=== PATIENT | male | born 1970 | race Caucasian/White ===

== ENCOUNTER 2017-11-22 14:44 | Inpatient (IN) | payer OTHER ==
[2017-11-22] MEDS ORDERED: SODIUM CHLORIDE 1,000 ML IV STA ×2 (15:04→21:32)
[2017-11-22] MEDS ORDERED: ACETAMINOPHEN 500 MG TABLET (FP) PO ONE (15:08)
--- NOTE | 2017-11-22 15:08 | PDOC ---
History of Present Illness <Sree Murillo - Last Filed: 11/22/17 16:56> - History of Present Illness Initial Comments: 47 year old male with history of HTN presenting with left lower extremity pain , swelling, erythema and fevers for the past three days. Stated he had whole body fevers on Monday then began to feel some swelling and tenderness which became a non-pruritic erythamatous lesion that slowly spread up his leg over the next few days. He also feels some slight pain and swelling in his left groin. Hasn't taken any medication for the leg pain this year. Denies any trauma to the area, weeping/drainage from the wound, recent insect bites there, or any episode of this in the past. Denies nausea, vomiting, diarrhea, constipation, chest pain, or other symptoms. 11/22/17 15:07 <Jose José - Last Filed: 11/22/17 19:03> - General Chief Complaint: Wound Stated Complaint: REDNESS TO LEFT LOWER LEG Time Seen by Provider: 11/22/17 15:01 Past History <Sree Murillo - Last Filed: 11/22/17 16:56> - Past Medical History COPD: No HTN: Yes Hypercholesterolemia: Yes - Suicide/Smoking/Psychosocial Hx Smoking History: Never smoked Have you smoked in the past 12 months: No Information on smoking cessation initiated: No Hx Alcohol Use: Yes (SOCIAL) Drug/Substance Use Hx: No Substance Use Type: Alcohol <Jose José - Last Filed: 11/22/17 19:03> - Past Medical History Allergies/Adverse Reactions: Allergies Allergy/AdvReac Type Severity Reaction Status Date / Time No Known Allergies Allergy Unverified 11/22/17 14:46 Home Medications: Ambulatory Orders NK [No Known Home Medication] 11/22/17 Review of Systems - Review of Systems Constitutional: Yes: Chills, Fever. No: Diaphoresis, Night Sweats HEENTM: No: Blurred Vision Respiratory: No: Cough, Shortness of Breath, Stridor, Wheezing, Productive cough Cardiac (ROS): No: Chest Pain, Edema, Irregular Heart Rate ABD/GI: No: Diarrhea, Nausea, Vomiting : No: Burning, Dysuria, Discharge, Frequency, Hematuria Musculoskeletal: No: Joint Pain, Joint Swelling Integumentary: Yes: Change in Color, Erythema, Lesions, Rash. No: Bruising Neurological: No: Headache, Numbness, Tremors Psychiatric: No: Anxiety, Depression <Jose José - Last Filed: 11/22/17 19:03> *Physical Exam - Vital Signs Last Vital Signs Temp Pulse Resp BP Pulse Ox 98.7 F 97 H 16 152/108 96 11/22/17 14:46 11/22/17 14:46 11/22/17 14:46 11/22/17 14:46 11/22/17 14:46 <MoSree white S - Last Filed: 11/22/17 16:56> - Vital Signs Last Vital Signs Temp Pulse Resp BP Pulse Ox 98.7 F 97 H 16 152/108 96 11/22/17 14:46 11/22/17 14:46 11/22/17 14:46 11/22/17 14:46 11/22/17 14:46 - Physical Exam General Appearance: Yes: Nourished, Appropriately Dressed. No: Apparent Distress HEENT: positive: EOMI, TAM, Normal ENT Inspection, Normal Voice Neck: positive: Trachea midline, Normal Thyroid, Supple. negative: Tender, Rigid Respiratory/Chest: positive: Lungs Clear, Normal Breath Sounds. negative: Chest Tender, Respiratory Distress Cardiovascular: positive: Regular Rhythm, Regular Rate. negative: Murmur Gastrointestinal/Abdominal: positive: Normal Bowel Sounds, Flat, Soft. negative : Tender Musculoskeletal: negative: Normal Inspection (Per below), CVA Tenderness Extremity: positive: Normal Capillary Refill, Normal Range of Motion, Tender, Pedal Edema, Swelling, Calf Tenderness, Erythema, Inflammation, Other (Left lower extremtiy swelling, erythema, and fluctuance, without obvious wheezing. Are of erythema extending from left lower extremity sock line around ankle and anteriorly to tibial plateau with slight posterior le ertyehma and swelling. Entire area is tender to palpation as well. Some slight erythema in the left groin with TTP as well. ). negative: Normal Inspection Integumentary: positive: Dry, Warm, Erythema, Moist, Rash, Swelling. negative: Normal Color Neurologic: positive: Fully Oriented, Normal Response, Motor Strength 5/5 <Jose José - Last Filed: 11/22/17 19:03> ED Treatment Course - LABORATORY CBC & Chemistry Diagram: 11/22/17 15:40 11/22/17 15:40 - ADDITIONAL ORDERS Additional order review: Laboratory Results 11/22/17 11/22/17 11/22/17 15:40 15:40 15:40 PT with INR 12.4 INR 1.11 PTT (Actin FS) 21.7 L Sodium 133 L Potassium 3.2 L Chloride 97 L Carbon Dioxide 24 Anion Gap 12 BUN 12 Creatinine 1.3 Creat Clearance w eGFR 59.17 Random Glucose 95 Calcium 8.6 Total Bilirubin 0.7 AST 21 ALT 17 Alkaline Phosphatase 97 H Creatine Kinase 39 Troponin I 0.01 Total Protein 7.7 Albumin 3.7 Urine Color Yellow Urine Appearance Clear Urine pH 5.5 Ur Specific [place] 1.020 Urine Protein 2+ H Urine Glucose (UA) Negative Urine Ketones Negative Urine Blood 1+ H Urine Nitrite Negative Urine Bilirubin 1+ H Urine Urobilinogen 2.0 11/22/17 15:40 RBC 5.41 MCV 93.6 MCHC 33.7 RDW 13.6 MPV 9.5 Neutrophils % No Result Required. Lymphocytes % No Result Required. - Medications Given in the ED: ED Medications Discontinued Medications Generic Name Dose Route Start Last Admin Trade Name Freq PRN Reason Stop Dose Admin Acetaminophen 1,000 mg 11/22/17 15:08 11/22/17 16:05 Tylenol - PO 11/22/17 15:09 1,000 mg ONCE ONE Administration Sodium Chloride 1,000 mls @ 1,000 mls/hr 11/22/17 15:04 11/22/17 16:12 Normal Saline - IV 11/22/17 16:03 1,000 mls/hr ASDIR STA Administration <ChidiRem S - Last Filed: 11/22/17 16:56> - LABORATORY CBC & Chemistry Diagram: 11/22/17 15:40 11/22/17 15:40 - RADIOLOGY Radiology Studies Ordered: Category Date Time Status CHEST X-RAY PORTABLE* [RAD] Stat Radiology 11/22/17 15:03 Ordered DUPLEX VASCUL US-1 LEG [US] Stat Ultrasound 11/22/17 15:06 Ordered <Jose José - Last Filed: 11/22/17 19:03> Medical Decision Making - Medical Decision Making 47 year old male with PMH of HTN presenting with LLE erythema and swelling concerning for cellulitis + lymphangitis. Patient denies trauma, insect bite, or pruritus to that area. Patient is not a diabetic, smoker, or drinker. Sepsis labs sets demonstrated WBC at 17, and lactic acid of 2.4. Patient got Vancomycin 2 G, Tylenol 1G PO, 2 L NS, and LLE Doppler was negative for DVT or deeper infection. Patient was admitted for cellulitis/ lymphangitis treatment. Sighned out [employer] Luis by Dr. Murillo. 11/22/17 18:51 <Jose José - Last Filed: 11/22/17 19:03> *DC/Admit/Observation/Transfer - Discharge Dispostion Admit: Yes <Sree Murillo - Last Filed: 11/22/17 16:56> - Discharge Dispostion Admit: Yes <Jose José - Last Filed: 11/22/17 19:03> Diagnosis at time of Disposition: Cellulitis and abscess of left leg, Lymphangitis - Discharge Dispostion Condition at time of disposition: Stable
[2017-11-22 15:53] LABS: PH,URINE 5.5 (4.5-8); URINE APPEARANCE Clear; URINE BILIRUBIN 1+ (NEGATIVE); URINE GLUCOSE (UA) Negative (NEGATIVE); URINE KETONE Negative (NEGATIVE); URINE NITRITE Negative (NEGATIVE)
[2017-11-22 15:56] LABS: HEMATOCRIT 50.6 % (35.4-49); HEMOGLOBIN 17.1 GM/dl (11.7-16.9); MCH 31.6 pg (25.7-33.7); MCHC 33.7 g/dl (32.0-35.9); MEAN CELL VOLUME 93.6 fl (80-96); MEAN PLT VOLUME 9.5 fl (7.5-11.1); PLATELET COUNT 185 K/MM3 (134-434); RBC 5.41 M/mm3 (4.00-5.60); RDW 13.6 % (11.9-15.9); WHITE BLOOD COUNT 16.8 K/mm3 (4.0-10.8)
[2017-11-22] MEDS ORDERED: ACETAMINOPHEN 500 MG TABLET (FP) ONE (16:03)
[2017-11-22 16:11] LABS: URINE BLOOD 1+ (NEGATIVE); URINE COLOR YELLOW; URINE PROTEIN 2+ (NEGATIVE)
[2017-11-22 16:12] LABS: ALBUMIN 3.7 g/dl (3.5-5.0); ALK PHOS 97 U/L (32-92); ANION GAP 12 (8-16); BILIRUBIN,TOTAL 0.7 mg/dl (0.2-1.0); BLOOD UREA NITROGEN 12 mg/dl (7-18); CALCIUM 8.6 mg/dl (8.4-10.2); CHLORIDE 97 mmol/L (98-107); CO2 24 mmol/L (22-28); CREATININE 1.3 mg/dl (0.6-1.3); GLUCOSE,RANDOM 95 mg/dl (74-106); POTASSIUM 3.2 mmol/L (3.5-5.1); SGOT/AST 21 U/L (10-42); SGPT/ALT 17 U/L (10-40); SODIUM 133 mmol/L (136-145); TOT PROT 7.7 g/dl (6.4-8.3)
[2017-11-22] MEDS ORDERED: SODIUM CHLORIDE 0.9% 1000 ML INFUS.BAG IV ONE (16:14)
[2017-11-22 16:15] LABS: INR 1.11 (0.82-1.09); PROTHROMBIN TIME (PATIENT) 12.4 SEC (10.2-13.0)
[2017-11-22 16:23] LABS: ACTIVATED PTT 21.7 SECONDS (24.0-38.9)
[2017-11-22] MEDS ORDERED: VANCOMYCIN 2,000 MG in DEXTROSE 5%-WATER - 250 ML IVPB ONE (16:27)
--- NOTE | 2017-11-22 16:29 | PDOC ---
Attending Attestation - Resident Resident Name: Jose José - ED Attending Attestation I have performed the following: I have examined & evaluated the patient, The case was reviewed & discussed with the resident, I agree w/resident's findings & plan, Exceptions are as noted - HPI HPI: Receivd call from GP , sending this patient from their office with a history of progressive redness and swelling of the left lower extremity for the last 3 days , initially with fever and chills , moderate tenderness and swelling left groin. Denies any trauma no significant PMH 11/22/17 16:18 - Physicial Exam PE: Alert oriented x 3 redness left lower extremity with strikes of lymphangitis towards the left inguinal nodes, increased in size US Doppler = negative for DVT Antibiotics , iv fluids ordered To be admitted Ximena Espino - Medical Decision Making 11/22/17 16:29 Admit Ximena Espino Med surg <Sree Murillo S - Last Filed: 11/22/17 16:43> Heart Score/ECG Review #1 11/22/17 16:31 Normal Sinus Rhythm at [address] Murillo. <Vaibhav Cardoso - Last Filed: 11/22/17 16:31>
[2017-11-22] MEDS ORDERED: VANCOMYCIN 1,000 MG VIAL (RESTRICTED TO ID ONLY) ONE (16:43)
[2017-11-22 17:57] LABS: PLATELET ESTIMATE ADEQUATE
[2017-11-22] MEDS ORDERED: SODIUM CHLORIDE 500 ML IV STA (18:01)
[2017-11-22] MEDS ORDERED: PIPERACIL/TAZOB 3.375 GM 3.375 GM/50 ML PREMIX IVPB SCH (18:15)
[2017-11-22] MEDS ORDERED: SODIUM CHLORIDE 1,000 ML IV SCH (18:15)
[2017-11-22 18:22] LABS: EPI CELLS FEW /HPF
[2017-11-22 18:23] LABS: URINE BACTERIA FEW /hpf (NEGATIVE)
[2017-11-22] MEDS ORDERED: PIPERACILLIN/TAZOB 3.375 GM 3.375 GM in DEXTROSE 5%-WATER - 100 ML IVPB SCH (18:30)
[2017-11-22] MEDS: POTASSIUM CHLORIDE ORAL LIQUID 20 MEQ/15 ML PO SCH ×2 (18:47→23:25)
[2017-11-22 19:54] VITALS: BMI 36.4
[2017-11-22] MEDS ORDERED: PIPERACILLIN/TAZOB 3.375 GM 3.375 GM/50 ML BAG IVPB SCH (20:27)
--- NOTE | 2017-11-22 21:29 | HP ---
CHIEF COMPLAINT: Left leg, pain, swelling and redness PCP: HISTORY OF PRESENT ILLNESS: This is a 47 y/o man with a PMHx of: HTN, HLD. Who presents to the ED with progressive swelling and redness, pain with blisters to the posterior aspect x 3 days. Patient reports while traveling to a conference in [place] he had a cold and fever. Patient reports noting increase tightness to his LLE when dependent. Patient denies calf pain or numbness. Patient denies cough , SOB, palpitations, AP, N/V/D, constipation, dysuria. ER course was notable for: (1) Doppler- neg DVT (2) WBC 16.8 (3) K 3.2 Recent Travel: [facility] PAST MEDICAL HISTORY: HTN HLD (diet controlled) Childhood Asthma- resolved PAST SURGICAL HISTORY: Social History: Smoking:Never Alcohol: Socially Drugs: Denies Family History: Mother- Cardiac age 62 Father- Diabetes Sisters- Alive and Well Allergies No Known Allergies Allergy (Unverified 11/22/17 14:46) HOME MEDICATIONS: Home Medications Medication Instructions Recorded NK [No Known Home Medication] 11/22/17 REVIEW OF SYSTEMS CONSTITUTIONAL: Absent: fever, chills, diaphoresis, generalized weakness, malaise, loss of appetite, weight change HEENT: Absent: rhinorrhea, nasal congestion, throat pain, throat swelling, difficulty swallowing, mouth swelling, ear pain, eye pain, visual changes CARDIOVASCULAR: Absent: chest pain, syncope, palpitations, irregular heart rate, lightheadedness , peripheral edema RESPIRATORY: Absent: cough, shortness of breath, dyspnea with exertion, orthopnea, wheezing, stridor, hemoptysis GASTROINTESTINAL: Absent: abdominal pain, abdominal distension, nausea, vomiting, diarrhea, constipation, melena, hematochezia GENITOURINARY: Absent: dysuria, frequency, urgency, hesitancy, hematuria, flank pain, genital pain MUSCULOSKELETAL: myalgia, arthralgia, joint swelling Absent: back pain, neck pain SKIN: redness, blisters to LLE Absent: rash, itching, pallor HEMATOLOGIC/IMMUNOLOGIC: Absent: easy bleeding, easy bruising, lymphadenopathy, frequent infections ENDOCRINE: Absent: unexplained weight gain, unexplained weight loss, heat intolerance, cold intolerance NEUROLOGIC: Absent: headache, focal weakness or paresthesias, dizziness, unsteady gait, seizure, mental status changes, bladder or bowel incontinence PSYCHIATRIC: Absent: anxiety, depression, suicidal or homicidal ideation, hallucinations. PHYSICAL EXAMINATION Vital Signs - 24 hr 11/22/17 11/22/17 11/22/17 14:46 17:28 19:28 Temperature 98.7 F 98.3 F 98.7 F Pulse Rate 97 H 94 H Pulse Rate [ 91 H Right Radial] Respiratory 16 16 18 Rate Blood Pressure 152/108 148/89 Blood Pressure 151/100 [Left Arm] O2 Sat by Pulse 96 96 Oximetry (%) 11/22/17 11/22/17 21:25 21:26 Temperature 98.7 F Pulse Rate 92 H Pulse Rate [ Right Radial] Respiratory 16 Rate Blood Pressure 121/72 Blood Pressure [Left Arm] O2 Sat by Pulse 96 Oximetry (%) GENERAL: Awake, alert, and fully oriented, in no acute distress. HEAD: Normal with no signs of trauma. EYES: Pupils equal, round and reactive to light, extraocular movements intact, sclera anicteric, conjunctiva clear. No lid lag. EARS, NOSE, THROAT: Ears normal, nares patent, oropharynx clear without exudates. Moist mucous membranes. NECK: Normal range of motion, supple without lymphadenopathy, JVD, or masses. LUNGS: Breath sounds equal, clear to auscultation bilaterally. No wheezes, and no crackles. No accessory muscle use. HEART: Regular rate and rhythm, normal S1 and S2 without murmur, rub or gallop. ABDOMEN: Soft, nontender, not distended, normoactive bowel sounds, no guarding, no rebound, no masses. No hepatomegaly or splenomegaly. MUSCULOSKELETAL: Normal range of motion at all joints. No bony deformities or tenderness. No CVA tenderness. UPPER EXTREMITIES: 2+ pulses, warm, well-perfused. No cyanosis. No clubbing. No peripheral edema. LOWER EXTREMITIES: 2+ pulses, warm, well-perfused. No calf tenderness. +Grossly edematous, erythematous left thigh to left ankle peripheral edema. NEUROLOGICAL: Cranial nerves II-XII intact. Normal speech. Gait not observed. PSYCHIATRIC: Cooperative. Good eye contact. Appropriate mood and affect. SKIN: Warm, dry, normal turgor, no rashes or lesions noted, normal capillary refill. Blisters to posterior aspect LLE,+erythematous Laboratory Results - last 24 hr 11/22/17 11/22/17 11/22/17 15:40 15:40 15:40 WBC 16.8 H RBC 5.41 Hgb 17.1 H Hct 50.6 H MCV 93.6 MCH 31.6 MCHC 33.7 RDW 13.6 Plt Count 185 MPV 9.5 Neutrophils % No Result Required. Neutrophils % (Manual) 78.0 Band Neutrophils % 4.0 Lymphocytes % No Result Required. Lymphocytes % (Manual) 11.0 Monocytes % (Manual) 4 Eosinophils % (Manual) 2.0 Metamyelocytes 1 Platelet Estimate Adequate PT with INR 12.4 INR 1.11 PTT (Actin FS) 21.7 L Sodium Potassium Chloride Carbon Dioxide Anion Gap BUN Creatinine Creat Clearance w eGFR Random Glucose Lactic Acid Calcium Total Bilirubin AST ALT Alkaline Phosphatase Creatine Kinase Troponin I Total Protein Albumin Urine Color Yellow Urine Appearance Clear Urine pH 5.5 Ur Specific [place] 1.020 Urine Protein 2+ H Urine Glucose (UA) Negative Urine Ketones Negative Urine Blood 1+ H Urine Nitrite Negative Urine Bilirubin 1+ H Urine Urobilinogen 2.0 Urine RBC 2-4 Urine WBC 10-15 Ur Epithelial Cells Few Urine Bacteria Few 11/22/17 11/22/17 11/22/17 15:40 15:40 18:02 WBC RBC Hgb Hct MCV MCH MCHC RDW Plt Count MPV Neutrophils % Neutrophils % (Manual) Band Neutrophils % Lymphocytes % Lymphocytes % (Manual) Monocytes % (Manual) Eosinophils % (Manual) Metamyelocytes Platelet Estimate PT with INR INR PTT (Actin FS) Sodium 133 L Potassium 3.2 L Chloride 97 L Carbon Dioxide 24 Anion Gap 12 BUN 12 Creatinine 1.3 Creat Clearance w eGFR 59.17 Random Glucose 95 Lactic Acid 2.4 H* 4.8 H* Calcium 8.6 Total Bilirubin 0.7 AST 21 ALT 17 Alkaline Phosphatase 97 H Creatine Kinase 39 Troponin I 0.01 Total Protein 7.7 Albumin 3.7 Urine Color Urine Appearance Urine pH Ur Specific [place] Urine Protein Urine Glucose (UA) Urine Ketones Urine Blood Urine Nitrite Urine Bilirubin Urine Urobilinogen Urine RBC Urine WBC Ur Epithelial Cells Urine Bacteria ASSESSMENT/PLAN: This is a 47 y/o male with a PMHx: HTN, HLD. Admitted to M/S for Cellulitis of Left Leg. Plan: FEN - PO Fluids - Repleted K, continue to monitor - Low Na Diet Code Status: Full Code Dispo: Requires Inpatient Problem List - Problem (1) Cellulitis and abscess of left leg Assessment/Plan: - Blood Cultures-pending - WBC 16.8 - Lactic Acid trending up 2.4~4.8~2.8 After fluid resuscitation - Repeat Lactic Acid in am - Vancomycin, Zosyn givne in ED - Will continue empiric therapy for MRSA, Pseudomonas coverage - Appreciate ID Consult - Elevate extremity - Monitor CBC - Monitor vitals Code(s): L03.116 - CELLULITIS OF LEFT LOWER LIMB; L02.416 - CUTANEOUS ABSCESS OF LEFT LOWER LIMB (2) Lymphangitis Assessment/Plan: - See above Code(s): I89.1 - LYMPHANGITIS (3) HTN (hypertension) Assessment/Plan: - Not well controlled - Continue home meds - Monitor BP - Low Na Dash Diet - Monitor renal function Code(s): I10 - ESSENTIAL (PRIMARY) HYPERTENSION (4) HLD (hyperlipidemia) Assessment/Plan: - Diet Controlled Code(s): E78.5 - HYPERLIPIDEMIA, UNSPECIFIED (5) DVT prophylaxis Assessment/Plan: - Lovenox SQ Code(s): [id number] - Visit type - Emergency Visit Emergency Visit: Yes ED Registration Date: 11/22/17 Care time: The patient presented to the Emergency Department on the above date and was hospitalized for further evaluation of their emergent condition. - New Patient This patient is new to me today: Yes Date on this admission: 11/22/17 - Critical Care Critical Care patient: No
[2017-11-22] MEDS: MELATONIN 5 MG TABLETS PO PRN (23:25)
[2017-11-23] MEDS ORDERED: PIPERACILLIN/TAZOB 3.375 GM 3.375 GM/50 ML BAG IVPB SCH (02:00)
[2017-11-23 08:36] LABS: ALK PHOS 93 U/L (32-92); ANION GAP 8 (8-16); BILIRUBIN,TOTAL 0.8 mg/dl (0.2-1.0); BLOOD UREA NITROGEN 10 mg/dl (7-18); CALCIUM 8.2 mg/dl (8.4-10.2); CHLORIDE 104 mmol/L (98-107); CO2 24 mmol/L (22-28); CREATININE 1.2 mg/dl (0.6-1.3); GLUCOSE,RANDOM 94 mg/dl (74-106); POTASSIUM 4.5 mmol/L (3.5-5.1); SGOT/AST 30 U/L (10-42); SGPT/ALT 27 U/L (10-40); SODIUM 136 mmol/L (136-145); TOT PROT 6.4 g/dl (6.4-8.3)
[2017-11-23 08:41] LABS: BASO % 0.3 % (0-2.0); HEMATOCRIT 42.8 % (35.4-49); HEMOGLOBIN 14.6 GM/dl (11.7-16.9); LYMPH % 17.2 % (8-40); MCH 31.8 pg (25.7-33.7); MCHC 34.2 g/dl (32.0-35.9); MEAN PLT VOLUME 9.6 fl (7.5-11.1); MONO % 7.2 % (3.8-10.2); NEUT % 74.3 % (42.8-82.8); PLATELET COUNT 181 K/MM3 (134-434); RDW 13.4 % (11.9-15.9); WHITE BLOOD COUNT 14.4 K/mm3 (4.0-10.8)
--- NOTE | 2017-11-23 08:59 | PN ---
Physical Exam: SUBJECTIVE: Patient seen and examined, reports pain to the left lower extremity upon movement, patient denies any tactile fevers. OBJECTIVE: patient is a 47 y/o male with a past medical history of hypertension , patient was admitted from the emergency department for cellulitis of the left lower extremity Vital Signs Period Temp Pulse Resp BP Sys/Fraser Pulse Ox Last 24 Hr 98.3 F-99.5 F 91-97 16-18 121-152/72-108 96-96 GENERAL: obese, awake, alert, and fully oriented, in no acute distress. HEAD: Normal with no signs of trauma. EYES: PERRL, extraocular movements intact, sclera anicteric, conjunctiva clear. No ptosis. ENT: Ears normal, nares patent, oropharynx clear without exudates, moist mucous membranes. NECK: Trachea midline, full range of motion, supple. LUNGS: Breath sounds equal, clear to auscultation bilaterally, no wheezes, no crackles, no accessory muscle use. HEART: Regular rate and rhythm, S1, S2 without murmur, rub or gallop. ABDOMEN: Soft, nontender, nondistended, normoactive bowel sounds, no guarding, no rebound, no hepatosplenomegaly, no masses. EXTREMITIES: 2+ pulses, left lower extremity, +2 edema, erythema to the distal extremity, not extending past markings NEUROLOGICAL: Cranial nerves II through XII grossly intact. Normal speech, gait not observed. PSYCH: Normal mood, normal affect. SKIN: Warm, dry, normal turgor, no rashes or lesions noted Laboratory Results - last 24 hr CBC WBC 14.4 K/mm3 (4.0-10.8) H 11/23/17 07:35 RBC 4.60 M/mm3 (4.00-5.60) 11/23/17 07:35 Hgb 14.6 GM/dl (11.7-16.9) D 11/23/17 07:35 Hct 42.8 % (35.4-49) D 11/23/17 07:35 MCV 93.0 fl (80-96) 11/23/17 07:35 MCH 31.8 pg (25.7-33.7) 11/23/17 07:35 MCHC 34.2 g/dl (32.0-35.9) 11/23/17 07:35 RDW 13.4 % (11.9-15.9) 11/23/17 07:35 Plt Count 181 K/MM3 (134-434) 11/23/17 07:35 MPV 9.6 fl (7.5-11.1) 11/23/17 07:35 Neutrophils % 74.3 % (42.8-82.8) 11/23/17 07:35 Neutrophils % (Manual) 78.0 % (42.8-82.8) 11/22/17 15:40 Band Neutrophils % 4.0 % (0-10) 11/22/17 15:40 Lymphocytes % 17.2 % (8-40) 11/23/17 07:35 Lymphocytes % (Manual) 11.0 % (8-40) 11/22/17 15:40 Monocytes % 7.2 % (3.8-10.2) 11/23/17 07:35 Monocytes % (Manual) 4 % (3.8-10.2) 11/22/17 15:40 Eosinophils % 1.0 % (0-4.5) 11/23/17 07:35 Eosinophils % (Manual) 2.0 % (0-4.5) 11/22/17 15:40 Basophils % 0.3 % (0-2.0) 11/23/17 07:35 Metamyelocytes 1 % (0-2) 11/22/17 15:40 Platelet Estimate Adequate 11/22/17 15:40 CMP Sodium 136 mmol/L (136-145) 11/23/17 07:35 Potassium 4.5 mmol/L (3.5-5.1) D 11/23/17 07:35 Chloride 104 mmol/L (98-107) 11/23/17 07:35 Carbon Dioxide 24 mmol/L (22-28) 11/23/17 07:35 Anion Gap 8 (8-16) 11/23/17 07:35 BUN 10 mg/dl (7-18) 11/23/17 07:35 Creatinine 1.2 mg/dl (0.6-1.3) 11/23/17 07:35 Creat Clearance w eGFR > 60 (>60) 11/23/17 07:35 Random Glucose 94 mg/dl (74-106) 11/23/17 07:35 Lactic Acid 2.8 mmol/L (0.0-2.0) H* 11/22/17 23:10 Calcium 8.2 mg/dl (8.4-10.2) L 11/23/17 07:35 Magnesium 2.0 mg/dL (1.8-2.4) 11/23/17 07:35 Total Bilirubin 0.8 mg/dl (0.2-1.0) 11/23/17 07:35 AST 30 U/L (10-42) D 11/23/17 07:35 ALT 27 U/L (10-40) D 11/23/17 07:35 Alkaline Phosphatase 93 U/L (32-92) H 11/23/17 07:35 Creatine Kinase 39 IU/L (39-308) 11/22/17 15:40 Troponin I 0.01 ng/ml (0.00-0.05) 11/22/17 15:40 Total Protein 6.4 g/dl (6.4-8.3) 11/23/17 07:35 Albumin 3.0 g/dl (3.5-5.0) L 11/23/17 07:35 Active Medications Generic Name Dose Route Start Last Admin Trade Name Freq PRN Reason Stop Dose Admin Acetaminophen 650 mg 11/22/17 16:46 Tylenol - PO Q6H PRN FEVER Enoxaparin Sodium 40 mg 11/23/17 10:00 Lovenox - SQ DAILY [facility] Sodium Chloride 1,000 mls @ 100 mls/hr 11/22/17 18:15 11/22/17 18:54 Normal Saline - IV 100 mls/hr ASDIR ALEXIS Administration Vancomycin HCl 2,000 mg/ 500 mls @ 250 mls/hr 11/23/17 10:00 Dextrose IVPB DAILY [facility] Protocol Melatonin 5 mg 11/22/17 23:11 11/22/17 23:25 Melatonin PO 5 mg HS PRN Administration INSOMNIA Piperacillin/Tazobactam/Dextrose 3.375 gm 11/22/17 18:15 Zosyn 3.375gm Ivpb (Premix) IVPB Q8H-IV [facility] ASSESSMENT/PLAN: 1) ID sepsis - secondary to cellulitis of left leg -lactic acid wnl, pt is afebrile, wbc is trending downward - vanc, zosyn (11/22) ID consulted (bharat) cefazolin (11/23 -), follow blood cultures 2) cardiovascular hypertension - no home medications, b/p at goal strict monitoring, b/p q4h f/e/n - low sodium diet - replete lytes prn ppx - lovenox - pepcid - oob - scd dispo: pt requires inpatient admission Visit type - Emergency Visit Emergency Visit: Yes ED Registration Date: 11/22/17 Care time: The patient presented to the Emergency Department on the above date and was hospitalized for further evaluation of their emergent condition. - New Patient This patient is new to me today: Yes Date on this admission: 11/23/17 - Critical Care Critical Care patient: No - Discharge Referral Referred to [facility] No
[2017-11-23] MEDS: ENOXAPARIN NA (PORCINE) 40 MG/0.4 ML DISP.SYRIN SQ SCH (09:34)
--- NOTE | 2017-11-23 09:40 | PN ---
Progress Note (short form) - Note Progress Note: ID Consult dictated Cellulitis/ Lymphangitis L LE Fever/ leukocytosis/ lactic acidosis R/O sepsis secondary to skin source Await cultures Continue cefazolin 2gm IVPB q8h
[2017-11-23] MEDS ORDERED: VANCOMYCIN 2,000 MG in DEXTROSE 5%-WATER - 500 ML IVPB SCH (10:00)
[2017-11-23] MEDS: CEFAZOLIN 2 GM/D5W 2 GM/50 ML ML IVPB SCH ×2 (10:12→17:08)
[2017-11-23] MEDS ORDERED: ZOLPIDEM TARTRATE 5 MG TABLET PO PRN (11:45)
--- NOTE | 2017-11-23 12:04 | CONS ---
INFECTIOUS DISEASE CONSULTATION DATE OF CONSULTATION: DATE OF DICTATION: 11/23/2017 REASON FOR CONSULTATION: The patient is a 47-year-old male, past medical history of hypertension, non-diabetic, evaluated for cellulitis of the left lower extremity. HISTORY OF PRESENT ILLNESS: The patient reports that approximately 3 days prior to admission he began to develop worsening left lower extremity swelling, pain, and erythema. The pain and swelling progressed to the point where he was unable to bear weight on the left lower extremity. He presented to the emergency room where he was found to have cellulitis of the left leg. A Doppler exam was performed and was negative for DVT. His course was further complicated by fever, elevated white blood cell count, and lactic acidosis. He was empirically treated with vancomycin and Zosyn. Patient denies traumatic injury to the left lower extremity. No reports of insect or animal bites or scratches. He denies a prior history of serious soft tissue infection requiring hospitalization or history of MRSA. PAST MEDICAL HISTORY: Positive for hypertension. ALLERGIES: No known allergies. MEDICATIONS: Tylenol, Lovenox, melatonin, vancomycin, and Zosyn. SOCIAL HISTORY: Nonsmoker, occasional EtOH. He is employed in a law office, doing office work. SYSTEMS REVIEW: Neurologic: No loss of consciousness, seizure activity, focal weakness. Cardiac: Negative chest pain and palpitations. Respiratory: Negative cough or sputum production. Gastrointestinal: Negative vomiting or diarrhea. Genitourinary: Negative for urinary tract infection. LABORATORY DATA: White count 16.8 with left shift, hematocrit 50.6, platelet count 185. BUN 12, creatinine 1.3. Lactic acid 2.8. Urinalysis: White cells 10-15. Blood and urine cultures pending. PHYSICAL EXAMINATION: General: He is awake and alert. He is not acutely toxic appearing. Vital Signs: Temperature 99.5; blood pressure 131/78; pulse 94, regular; respirations 18 per minute. HEENT: Sclerae are anicteric. Heart: Sounds S1, S2. Lungs: Clear. Abdomen: Obese, soft, nontender. Left Lower Extremity: There is confluent erythema and warmth involving the left lower extremity from the area of the foot to below the knee. The leg is markedly swollen, warm to touch. No crepitus or fluctuance. No lymphangitis noted. However, tenderness along the medial thigh. IMPRESSION: 1. Cellulitis/lymphangitis of the left lower extremity. 2. Fever, leukocytosis, lactic acidosis; possible sepsis secondary to skin source. RECOMMENDATIONS: Await culture results. Empiric antibiotic coverage with cefazolin 2 g IV piggyback every 8 hours in conjunction with elevation and analgesics. MRSA nares screen. Will follow. Thank you for the kind referral. SAMSON ANGEL M.D. ALEX/[id number]
--- NOTE | 2017-11-23 14:47 | EKG ---
Test Reason : Blood Pressure : / mmHG Vent. Rate : 094 BPM Atrial Rate : 094 BPM P-R Int : 154 ms QRS Dur : 100 ms QT Int : 338 ms P-R-T Axes : 027 -59 -03 degrees QTc Int : 422 ms NORMAL SINUS RHYTHM LEFT AXIS DEVIATION LEFT ATRIAL ENLARGEMENT CANNOT RULE OUT SEPTAL INFARCT , AGE UNDETERMINED ABNORMAL ECG NO PREVIOUS ECGS AVAILABLE Confirmed by MIGUEL ÁNGEL PENG MD ([id number]) on 11/23/2017 2:47:16 PM Referred By: MD ANGELO Confirmed By:MIGUEL ÁNGEL PENG MD
[2017-11-23] MEDS: FAMOTIDINE 20 MG TABLET PO SCH (21:41)
[2017-11-23] MEDS ORDERED: PT OWN MED DRAWER 7, Y5N ONE (23:53)
[2017-11-23] MEDS: MELATONIN 5 MG TABLETS PO PRN (23:55)
[2017-11-24] MEDS ORDERED: diphenhydrAMINE HCL 25 MG CAPSULE (FP) PO ONE (01:19)
[2017-11-24] MEDS: BENZOCAINE/MENTH/CETYLPYRD CL 1 EACH LOZENGE MM PRN ×2 (01:49→21:36)
[2017-11-24] MEDS: CEFAZOLIN 2 GM/D5W 2 GM/50 ML ML IVPB SCH ×3 (02:07→18:27)
--- NOTE | 2017-11-24 09:14 | PN ---
Progress Note, Physician History of Present Illness: Reports less L LE pain + localized pruritis L LE No c/o fever/ chills Tolerating antibiotics - Current Medication List Current Medications: Active Medications Acetaminophen (Tylenol -) 650 mg PO Q6H PRN PRN Reason: FEVER Benzocaine/Menthol (Cepacol Lozenge -) 1 each MM PRN PRN PRN Reason: SORE THROAT Last Admin: 11/24/17 01:49 Dose: 1 each Enoxaparin Sodium (Lovenox -) 40 mg SQ DAILY [facility] Last Admin: 11/23/17 09:34 Dose: 40 mg Famotidine (Pepcid -) 20 mg PO BID [facility] Last Admin: 11/23/17 21:41 Dose: 20 mg Cefazolin Sodium/Dextrose (Ancef 2 Gm Premixed Ivpb -) 2 gm in 50 mls @ 100 mls /hr IVPB Q8H-IV [facility] Last Admin: 11/24/17 02:07 Dose: 100 mls/hr Melatonin (Melatonin) 5 mg PO HS PRN PRN Reason: INSOMNIA Last Admin: 11/23/17 23:55 Dose: 5 mg Zolpidem Tartrate (Ambien -) 5 mg PO HS PRN PRN Reason: INSOMNIA - Objective Vital Signs: Vital Signs Temperature 98.1 F 11/24/17 03:00 Pulse Rate 81 11/24/17 03:00 Respiratory Rate 20 11/24/17 03:00 Blood Pressure 134/89 11/24/17 03:00 O2 Sat by Pulse Oximetry (%) 96 11/24/17 06:33 Constitutional: Yes: No Distress Eyes: Yes: Conjunctiva Clear Cardiovascular: Yes: Regular Rate and Rhythm, S1, S2 Respiratory: Yes: CTA Bilaterally Gastrointestinal: Yes: Normal Bowel Sounds, Soft Extremities: Yes: Other (L LE remains swollen. Decreased erythema/ warmth.No lymphangitis.) Labs: CBC, BMP 11/23/17 07:35 11/23/17 07:35 INR, PTT INR 1.11 (0.82-1.09) 11/22/17 15:40 Assessment/Plan Cellulitis L LE Leukocytosis- improved Lactic acidosis- resolved Continue cefazolin Elevation
[2017-11-24] MEDS: FAMOTIDINE 20 MG TABLET PO SCH ×2 (10:25→21:36)
[2017-11-24] MEDS: ENOXAPARIN NA (PORCINE) 40 MG/0.4 ML DISP.SYRIN SQ SCH (10:25)
[2017-11-24] MEDS ORDERED: MINERAL OIL/PETROLAT/WATER TOPICAL CREAM 454 GM JAR TP PRN (17:06)
--- NOTE | 2017-11-24 17:12 | PN ---
Physical Exam: SUBJECTIVE: Patient seen and examined, sitting up in bed, denies any tactile fever, reports pain to the left lower extremity is much improved OBJECTIVE: patient is a 47 y/o male with a past medical history of hypertension , patient was admitted from the emergency department for cellulitis of the left lower extremity Vital Signs Period Temp Pulse Resp BP Sys/Fraser Pulse Ox Last 24 Hr 97.8 F-98.5 F 78-88 18-20 128-142/82-89 96-97 GENERAL: The patient is awake, alert, and fully oriented, in no acute distress. HEAD: Normal with no signs of trauma. EYES: PERRL, extraocular movements intact, sclera anicteric, conjunctiva clear. No ptosis. ENT: Ears normal, nares patent, oropharynx clear without exudates, moist mucous membranes. NECK: Trachea midline, full range of motion, supple. LUNGS: Breath sounds equal, clear to auscultation bilaterally, no wheezes, no crackles, no accessory muscle use. HEART: Regular rate and rhythm, S1, S2 without murmur, rub or gallop. ABDOMEN: Soft, nontender, nondistended, normoactive bowel sounds, no guarding, no rebound, no hepatosplenomegaly, no masses. EXTREMITIES: 2+ pulses, warm, well-perfused, no edema. LEFT LOWER EXTREMITY: + 1 edema, erythema is much improved, scant, no extending past markings. NEUROLOGICAL: Cranial nerves II through XII grossly intact. Normal speech, gait not observed. PSYCH: Normal mood, normal affect. SKIN: Warm, dry, normal turgor, no rashes or lesions noted Active Medications Generic Name Dose Route Start Last Admin Trade Name Anastacioq PRN Reason Stop Dose Admin Acetaminophen 650 mg 11/22/17 16:46 Tylenol - PO Q6H PRN FEVER Benzocaine/Menthol 1 each 11/24/17 01:28 11/24/17 01:49 Cepacol Lozenge - MM 1 each PRN PRN Administration SORE THROAT Enoxaparin Sodium 40 mg 11/23/17 10:00 11/24/17 10:25 Lovenox - SQ 40 mg DAILY [facility] Administration Famotidine 20 mg 11/23/17 22:00 11/24/17 10:25 Pepcid - PO 20 mg BID [facility] Administration Cefazolin Sodium/Dextrose 2 gm in 50 mls @ 100 mls/hr 11/23/17 10:00 10:25 Ancef 2 Gm Premixed Ivpb - IVPB 100 mls/hr Q8H-IV [facility] Administration Melatonin 5 mg 11/22/17 23:11 11/23/17 23:55 Melatonin PO 5 mg HS PRN Administration INSOMNIA Multi-Ingredient Lotion 1 applic 11/24/17 17:06 Eucerin (Large Jar) - TP Q12H PRN DRY SKIN Zolpidem Tartrate 5 mg 11/23/17 11:45 Ambien - PO HS PRN INSOMNIA Microbiology 11/22/17 15:55 Blood - Peripheral Venous Blood Culture - Preliminary NO GROWTH OBTAINED AFTER 48 HOURS, INCUBATION TO CONTINUE FOR 3 DAYS. 11/22/17 15:40 Blood - Peripheral Venous Blood Culture - Preliminary NO GROWTH OBTAINED AFTER 48 HOURS, INCUBATION TO CONTINUE FOR 3 DAYS. 11/22/17 15:40 Urine - Urine Clean Catch Urine Culture - Final NO GROWTH OBTAINED ASSESSMENT/PLAN: 1) ID sepsis - resolved,lactic acid wnl, pt is afebrile, wbc is trended downward, follow wbc and fever curve, erythema is much improved, blood and urine cultures are negative to date - vanc, zosyn (11/22) ID consulted (bharat) cefazolin (11/23 -) 2) cardiovascular hypertension - no home medications, b/p at goal strict monitoring, b/p q4h f/e/n - low sodium diet - replete lytes prn ppx - lovenox - pepcid - oob - scd dispo: pt requires inpatient admission
[2017-11-24] MEDS ORDERED: PT OWN MED DRAWER 7, Y5N ONE (21:33)
[2017-11-24] MEDS: MELATONIN 5 MG TABLETS PO PRN (21:36)
[2017-11-25] MEDS: CEFAZOLIN 2 GM/D5W 2 GM/50 ML ML IVPB SCH ×3 (01:47→18:57)
[2017-11-25] MEDS: BENZOCAINE/MENTH/CETYLPYRD CL 1 EACH LOZENGE MM PRN ×2 (01:47→21:22)
[2017-11-25 07:42] LABS: BASO % 0.3 % (0-2.0); EOS % 1.6 % (0-4.5); HEMATOCRIT 43.4 % (35.4-49); HEMOGLOBIN 14.5 GM/dl (11.7-16.9); LYMPH % 19.6 % (8-40); MCHC 33.4 g/dl (32.0-35.9); MEAN CELL VOLUME 92.8 fl (80-96); MEAN PLT VOLUME 8.7 fl (7.5-11.1); MONO % 7.3 % (3.8-10.2); NEUT % 71.2 % (42.8-82.8); PLATELET COUNT 242 K/MM3 (134-434); RBC 4.68 M/mm3 (4.00-5.60); RDW 13.1 % (11.9-15.9); WHITE BLOOD COUNT 12.2 K/mm3 (4.0-10.8)
[2017-11-25 08:17] LABS: ANION GAP 10 (8-16); BLOOD UREA NITROGEN 12 mg/dl (7-18); CHLORIDE 99 mmol/L (98-107); CO2 27 mmol/L (22-28); CREATININE 1.1 mg/dl (0.6-1.3); GLUCOSE,RANDOM 98 mg/dl (74-106); POTASSIUM 4.4 mmol/L (3.5-5.1); SODIUM 136 mmol/L (136-145)
--- NOTE | 2017-11-25 09:01 | PN ---
Progress Note, Physician History of Present Illness: Reports less L LE pain + localized pruritis L LE No c/o fever/ chills Tolerating antibiotics - Current Medication List Current Medications: Active Medications Acetaminophen (Tylenol -) 650 mg PO Q6H PRN PRN Reason: FEVER Benzocaine/Menthol (Cepacol Lozenge -) 1 each MM PRN PRN PRN Reason: SORE THROAT Last Admin: 11/25/17 01:47 Dose: 1 each Enoxaparin Sodium (Lovenox -) 40 mg SQ DAILY [facility] Last Admin: 11/24/17 10:25 Dose: 40 mg Famotidine (Pepcid -) 20 mg PO BID [facility] Last Admin: 11/24/17 21:36 Dose: 20 mg Cefazolin Sodium/Dextrose (Ancef 2 Gm Premixed Ivpb -) 2 gm in 50 mls @ 100 mls /hr IVPB Q8H-IV [facility] Last Admin: 11/25/17 01:47 Dose: 100 mls/hr Melatonin (Melatonin) 5 mg PO HS PRN PRN Reason: INSOMNIA Last Admin: 11/24/17 21:36 Dose: 5 mg Multi-Ingredient Lotion (Eucerin (Large Jar) -) 1 applic TP Q12H PRN PRN Reason: DRY SKIN Zolpidem Tartrate (Ambien -) 5 mg PO HS PRN PRN Reason: INSOMNIA - Objective Vital Signs: Vital Signs Temperature 98.0 F 11/25/17 03:00 Pulse Rate 77 11/25/17 03:00 Respiratory Rate 19 11/25/17 03:00 Blood Pressure 137/88 11/25/17 03:00 O2 Sat by Pulse Oximetry (%) 96 11/25/17 07:40 Constitutional: Yes: No Distress Eyes: Yes: Conjunctiva Clear Cardiovascular: Yes: Regular Rate and Rhythm, S1, S2 Respiratory: Yes: CTA Bilaterally Gastrointestinal: Yes: Normal Bowel Sounds, Soft Extremities: Yes: Other (decreased L LE swelling / erythema / warmth. small tender, fluctuant area mid-calf) Labs: CBC, BMP 11/25/17 07:30 11/25/17 07:30 INR, PTT INR 1.11 (0.82-1.09) 11/22/17 15:40 Assessment/Plan Cellulitis L LE ? organizing soft tissue abscess L calf Leukocytosis- improved Lactic acidosis- resolved Continue cefazolin Would get surgical evaluation of L calf area ?? I&D Elevation
[2017-11-25] MEDS: FAMOTIDINE 20 MG TABLET PO SCH ×2 (10:00→21:22)
[2017-11-25] MEDS: ENOXAPARIN NA (PORCINE) 40 MG/0.4 ML DISP.SYRIN SQ SCH (10:00)
--- NOTE | 2017-11-25 11:02 | PN ---
Physical Exam: SUBJECTIVE: Patient seen and examined at bedside. OBJECTIVE: Vital Signs Period Temp Pulse Resp BP Sys/Fraser Pulse Ox Last 24 Hr 98.0 F-98.5 F 77-80 18-20 124-142/80-89 96-97 NEURO: A&Ox3 CV: S1, S2, rrr Pulm: CTA Abd: soft, not tender, not distended Left lower extremity: swelling from knee to foot; circumferential erythema; resolving blisters posterior calf; pre-tibial swelling Laboratory Results - last 24 hr 11/25/17 11/25/17 07:30 07:30 WBC 12.2 H RBC 4.68 Hgb 14.5 Hct 43.4 MCV 92.8 MCH 31.0 MCHC 33.4 RDW 13.1 Plt Count 242 D MPV 8.7 Neutrophils % 71.2 Lymphocytes % 19.6 Monocytes % 7.3 Eosinophils % 1.6 Basophils % 0.3 Sodium 136 Potassium 4.4 Chloride 99 Carbon Dioxide 27 Anion Gap 10 BUN 12 Creatinine 1.1 Random Glucose 98 Calcium 9.0 Active Medications Generic Name Dose Route Start Last Admin Trade Name Freq PRN Reason Stop Dose Admin Acetaminophen 650 mg 11/22/17 16:46 Tylenol - PO Q6H PRN FEVER Benzocaine/Menthol 1 each 11/24/17 01:28 11/25/17 01:47 Cepacol Lozenge - MM 1 each PRN PRN Administration SORE THROAT Enoxaparin Sodium 40 mg 11/23/17 10:00 11/24/17 10:25 Lovenox - SQ 40 mg DAILY [facility] Administration Famotidine 20 mg 11/23/17 22:00 11/24/17 21:36 Pepcid - PO 20 mg BID [facility] Administration Cefazolin Sodium/Dextrose 2 gm in 50 mls @ 100 mls/hr 11/23/17 10:00 01:47 Ancef 2 Gm Premixed Ivpb - IVPB 100 mls/hr Q8H-IV [facility] Administration Melatonin 5 mg 11/22/17 23:11 11/24/17 21:36 Melatonin PO 5 mg HS PRN Administration INSOMNIA Multi-Ingredient Lotion 1 applic 11/24/17 17:06 Eucerin (Large Jar) - TP Q12H PRN DRY SKIN Zolpidem Tartrate 5 mg 11/23/17 11:45 Ambien - PO HS PRN INSOMNIA ASSESSMENT/PLAN 47 year-old male with a PMH significant for HTN, HLD, admitted for left lower extremity cellulitis. Left lower extremity cellulitis --afebrile, WBC trending down --CT scan: subq edema consistent with cellulitis; no abscess or fluid collection --surgical consult appreciated, I&D not indicated per CT results --continue cefazolin per ID Hypertension --BP stable --on no meds Hyperlipidemia --on no meds FEN Fluids: PO intake adequate Electrolytes: replete as indicated Nutrition: low sodium diet DVT prophylaxis: lovenox Dispo: continues to require inpatient care. Full code. Visit type - Emergency Visit Emergency Visit: Yes ED Registration Date: 11/22/17 Care time: The patient presented to the Emergency Department on the above date and was hospitalized for further evaluation of their emergent condition. - New Patient This patient is new to me today: Yes Date on this admission: 11/25/17 - Critical Care Critical Care patient: No
[2017-11-25] MEDS ORDERED: SODIUM CHLORIDE 1,000 ML IV STA (12:03)
[2017-11-25] MEDS ORDERED: SODIUM CHLORIDE 1,000 ML IV SCH (12:15)
--- NOTE | 2017-11-25 18:38 | CONSULT ---
Consult Consult Specialty:: General Surgery Referred by:: Zahida Smith Reason for Consultation:: RLE cellulitis, possible abscess - History of Present Illness Chief Complaint: RLE swelling, redness and pain History of Present Illness: Was in [place] last weekend on business and had a number of symptoms he attributed to possible flu (aches and pains, URI, etc), but on Monday noted that his lower left leg was reddened and mildly swollen. He drove back from [place] Monday, and the leg became his primary concern, as the swelling and redness got worse, blisters formed, and it got more painful. He called to get an appt with his primary care doc and was seen Wed by one of his PMD's partners, who sent him directly to [facility] ER, where he was admitted to medicine with cellulitis. He has been on antibiotics per ID, IV Ancef, after initial doses of Vanco and Zosyn, and elevating RLE. Duplex was negative for DVT on arrival in [facility]. He is feeling better, and swelling today is beginning to recede enough to notice wrinkles in the leg. He had a CT of the lower leg today, showing only cellulitis and edema, but no drainable collection. Prior to obtaining CT, surgery was consulted to evaluate for possible need for any drainage. Since am, pt and primary team agree that the leg continues to improve. Some posterior calf blisters broke earlier today, and some telfa and cling gauze wrap are being used to cover the area. No fevers recently. No other associated symptoms left, except he has developed a small cough over the last couple of days. - History Source History Provided By: Patient Limitations to Obtaining History: No Limitations - Past Medical History Cardio/Vascular: Yes: HTN (used to be on med, but off with diet/lifestyle changes), Hyperlipdemia (diet-controlled) - Past Surgical History Past Surgical History: Yes: None - Alcohol/Substance Use Hx Alcohol Use: Yes (SOCIAL) History of Substance Use: reports: None - Smoking History Smoking history: Never smoked Have you smoked in the past 12 months: No - Social History ADL: Independent History of Recent Travel: Yes ([facility] came back Monday) Home Medications - Allergies Allergies/Adverse Reactions: Allergies Allergy/AdvReac Type Severity Reaction Status Date / Time No Known Allergies Allergy Unverified 11/22/17 14:46 - Home Medications Home Medications: Ambulatory Orders NK [No Known Home Medication] 11/22/17 Family Disease History - Family Disease History Family Disease History: Diabetes: Grandparent (paternal GM, GF) Review of Systems - Review of Systems Constitutional: denies: Chills, Fever Eyes: reports: Other (wears glasses). denies: Recent Change in Vision HENT: denies: Difficult Swallowing, Hearing Loss, Nasal Congestion, Throat Pain Neck: denies: Swollen Glands, Tenderness Cardiovascular: denies: Chest Pain, Palpitations Respiratory: reports: Cough (last couple of days, while in hospital). denies: SOB Gastrointestinal: denies: Abdominal Pain, Constipation, Diarrhea, Nausea, Vomiting Genitourinary: denies: Burning, Dysuria Musculoskeletal: reports: Extremity Pain (LLE, improving). denies: Back Pain, Decreased ROM, Joint Pain, Joint Swelling, Muscle Pain Integumentary: reports: Blister (posterior right calf), Erythema (LLE) Neurological: denies: Dizziness, Headache Psychiatric: denies: Anxiety, Depression Physical Exam Vital Signs: Vital Signs Temperature 98.0 F 11/25/17 03:00 Pulse Rate 77 11/25/17 03:00 Respiratory Rate 19 11/25/17 03:00 Blood Pressure 137/88 11/25/17 03:00 O2 Sat by Pulse Oximetry (%) 96 11/25/17 07:40 Vital Signs Period Temp Pulse Resp BP Sys/Fraser Pulse Ox Last 24 Hr 98.0 F-98.5 F 77-80 18-20 124-137/80-88 96-97 Constitutional: Yes: Well Nourished, No Distress, Calm Eyes: Yes: Conjunctiva Clear, EOM Intact HENT: Yes: Atraumatic, Normocephalic Neck: Yes: Supple, Trachea Midline Cardiovascular: Yes: Regular Rate and Rhythm. No: Murmur Respiratory: Yes: Regular, CTA Bilaterally Gastrointestinal: Yes: Normal Bowel Sounds, Soft. No: Distention, Tenderness ...Rectal Exam: Yes: Deferred Musculoskeletal: No: Joint Stiffness, Joint Swelling Extremities: Yes: Erythema (left lower leg, receding and fading from previously marked lines, faint patch of erythema on inner upper left thigh - previously had streaking which has faded per pt), Other (posterior calf with few small blisters, skin opened, covered with telfa and light gauze wrap; leg elevated). No: Calf Tenderness (much less than before), Cool, Cyanosis Edema: Yes (LLE, mostly ankle to knee) Edema: LLE: 2+ (wrinkles present, edema from above sock line to just below knee , compartments soft) Peripheral Pulses WNL: Yes Integumentary: Yes: Erythema ((see above)) Wound/Incision: Yes: Dressing Dry and Intact Neurological: Yes: Alert, Oriented Psychiatric: Yes: Alert, Oriented Labs: CBC, BMP 11/25/17 07:30 11/25/17 07:30 wbc down from 16.8 on admission Imaging - Results Cat Scan: Report Reviewed, Image Reviewed Problem List - Problems (1) Cellulitis of left lower leg Assessment/Plan: cellulitis with posterior edema blisters but no evidence of abscess wbc trending down on antibiotics per ID no drainable collection on CT recommend continue abx elevate LLE above level of heart as much as possible, except when up for meals or actively ambulating (avoid dependency like sitting with leg down) explained to pt how to do so after d/c at home as needed bacitracin/telfa to open blistered areas prn, try to minimize direct pressure over these areas anticipate continued improvement and eventual resolution no acute surgical issues please call if questions arise Thank you for the opportunity to participate in the care of this patient. Code(s): L03.116 - CELLULITIS OF LEFT LOWER LIMB (2) Acute lymphangitis of left lower extremity Assessment/Plan: resolving - minimal to no further streaking above knee level Code(s): L03.126 - ACUTE LYMPHANGITIS OF LEFT LOWER LIMB (3) HTN (hypertension) Code(s): I10 - ESSENTIAL (PRIMARY) HYPERTENSION Qualifiers: Hypertension type: essential hypertension Qualified Code(s): I10 - Essential (primary) hypertension (4) HLD (hyperlipidemia) Code(s): E78.5 - HYPERLIPIDEMIA, UNSPECIFIED Qualifiers: Hyperlipidemia type: unspecified Qualified Code(s): E78.5 - Hyperlipidemia , unspecified
[2017-11-25] MEDS ORDERED: PT OWN MED DRAWER 7, Y5N ONE (21:13)
[2017-11-25] MEDS: MELATONIN 5 MG TABLETS PO PRN (21:22)
[2017-11-26] MEDS: CEFAZOLIN 2 GM/D5W 2 GM/50 ML ML IVPB SCH ×2 (01:48→09:13)
[2017-11-26] MEDS: ACETAMINOPHEN 325 MG TABLET (FP) PO PRN ×2 (02:25→09:12)
[2017-11-26 07:40] VITALS: BP 128/84; PULSE 76; TEMP 98.1
--- NOTE | 2017-11-26 09:08 | PN ---
Physical Exam: SUBJECTIVE: Patient seen and examined OBJECTIVE: Vital Signs Period Temp Pulse Resp BP Sys/Fraser Pulse Ox Last 24 Hr 98.1 F-98.8 F 76-81 17-19 128-132/81-84 96-98 Active Medications Generic Name Dose Route Start Last Admin Trade Name Freq PRN Reason Stop Dose Admin Acetaminophen 650 mg 11/22/17 16:46 11/26/17 02:25 Tylenol - PO 650 mg Q6H PRN Administration FEVER Benzocaine/Menthol 1 each 11/24/17 01:28 11/25/17 21:22 Cepacol Lozenge - MM 1 each PRN PRN Administration SORE THROAT Enoxaparin Sodium 40 mg 11/23/17 10:00 11/25/17 10:00 Lovenox - SQ 40 mg DAILY [facility] Administration Famotidine 20 mg 11/23/17 22:00 11/25/17 21:22 Pepcid - PO 20 mg BID [facility] Administration Cefazolin Sodium/Dextrose 2 gm in 50 mls @ 100 mls/hr 11/23/17 10:00 01:48 Ancef 2 Gm Premixed Ivpb - IVPB 100 mls/hr Q8H-IV [facility] Administration Sodium Chloride 1,000 mls @ 125 mls/hr 11/25/17 12:15 11/25/17 20:17 Normal Saline - IV 125 mls/hr ASDIR [facility] Administration Melatonin 5 mg 11/22/17 23:11 11/25/17 21:22 Melatonin PO 5 mg HS PRN Administration INSOMNIA Multi-Ingredient Lotion 1 applic 11/24/17 17:06 Eucerin (Large Jar) - TP Q12H PRN DRY SKIN Zolpidem Tartrate 5 mg 11/23/17 11:45 Ambien - PO HS PRN INSOMNIA ASSESSMENT/PLAN:
[2017-11-26] MEDS: ENOXAPARIN NA (PORCINE) 40 MG/0.4 ML DISP.SYRIN SQ SCH (09:13)
[2017-11-26] MEDS: FAMOTIDINE 20 MG TABLET PO SCH (09:13)
[2017-11-26 09:40] LABS: HEMATOCRIT 45.9 % (35.4-49); HEMOGLOBIN 15.2 GM/dl (11.7-16.9); MCH 30.9 pg (25.7-33.7); MCHC 33.1 g/dl (32.0-35.9); MEAN CELL VOLUME 93.3 fl (80-96); MEAN PLT VOLUME 9.5 fl (7.5-11.1); PLATELET COUNT 253 K/MM3 (134-434); RBC 4.92 M/mm3 (4.00-5.60); RDW 13.3 % (11.9-15.9)
[2017-11-26 10:07] LABS: ANION GAP 13 (8-16); BLOOD UREA NITROGEN 12 mg/dl (7-18); CALCIUM 8.8 mg/dl (8.4-10.2); CHLORIDE 98 mmol/L (98-107); CO2 25 mmol/L (22-28); CREATININE 1.1 mg/dl (0.6-1.3); GLUCOSE,RANDOM 75 mg/dl (74-106); POTASSIUM 3.6 mmol/L (3.5-5.1); SODIUM 136 mmol/L (136-145)
--- NOTE | 2017-11-26 10:36 | PN ---
Progress Note, Physician History of Present Illness: Reports less L LE pain/ swelling No c/o fever/ chills WBC improved CT no collection Surgical evaluation appreciated Tolerating antibiotics - Current Medication List Current Medications: Active Medications Acetaminophen (Tylenol -) 650 mg PO Q6H PRN PRN Reason: FEVER Last Admin: 11/26/17 09:12 Dose: 650 mg Benzocaine/Menthol (Cepacol Lozenge -) 1 each MM PRN PRN PRN Reason: SORE THROAT Last Admin: 11/25/17 21:22 Dose: 1 each Enoxaparin Sodium (Lovenox -) 40 mg SQ DAILY [facility] Last Admin: 11/26/17 09:13 Dose: 40 mg Famotidine (Pepcid -) 20 mg PO BID [facility] Last Admin: 11/26/17 09:13 Dose: 20 mg Cefazolin Sodium/Dextrose (Ancef 2 Gm Premixed Ivpb -) 2 gm in 50 mls @ 100 mls /hr IVPB Q8H-IV [facility] Last Admin: 11/26/17 09:13 Dose: 100 mls/hr Sodium Chloride (Normal Saline -) 1,000 mls @ 125 mls/hr IV ASDIR [facility] Last Admin: 11/25/17 20:17 Dose: 125 mls/hr Melatonin (Melatonin) 5 mg PO HS PRN PRN Reason: INSOMNIA Last Admin: 11/25/17 21:22 Dose: 5 mg Multi-Ingredient Lotion (Eucerin (Large Jar) -) 1 applic TP Q12H PRN PRN Reason: DRY SKIN Zolpidem Tartrate (Ambien -) 5 mg PO HS PRN PRN Reason: INSOMNIA - Objective Vital Signs: Vital Signs Temperature 98.1 F 11/26/17 06:00 Pulse Rate 76 11/26/17 06:00 Respiratory Rate 19 11/26/17 06:00 Blood Pressure 128/84 11/26/17 06:00 O2 Sat by Pulse Oximetry (%) 97 11/26/17 07:38 Constitutional: Yes: No Distress Eyes: Yes: Conjunctiva Clear Cardiovascular: Yes: Regular Rate and Rhythm, S1, S2 Respiratory: Yes: CTA Bilaterally Gastrointestinal: Yes: Normal Bowel Sounds, Soft. No: Tenderness Extremities: Yes: Other (decreased L LE swelling/ erythema. + drainage, posterior calf. No fluctuance/ crepitance.) Labs: CBC, BMP 11/26/17 07:30 11/26/17 07:30 INR, PTT INR 1.11 (0.82-1.09) 11/22/17 15:40 Assessment/Plan Cellulitis L LE improved Leukocytosis-resolved Lactic acidosis- resolved May substitute keflex 500mg po q6h for additional 7d Outpatient follow up Elevation
--- NOTE | 2017-11-26 12:11 | DS ---
Physical Exam: SUBJECTIVE: Patient seen and examined OBJECTIVE: Vital Signs Period Temp Pulse Resp BP Sys/Fraser Pulse Ox Last 24 Hr 98.1 F-98.8 F 76-81 17-19 128-132/81-84 96-98 PHYSICAL EXAM GENERAL: The patient is awake, alert, and fully oriented, in no acute distress. HEAD: Normal with no signs of trauma. EYES: PERRL, extraocular movements intact, sclera anicteric, conjunctiva clear. ENT: Ears normal, nares patent, oropharynx clear without exudates, moist mucous membranes. NECK: Trachea midline, full range of motion, supple. LUNGS: Breath sounds equal, clear to auscultation bilaterally, no wheezes, no crackles, no accessory muscle use. HEART: Regular rate and rhythm, S1, S2 without murmur, rub or gallop. ABDOMEN: Soft, nontender, nondistended, normoactive bowel sounds, no guarding, no rebound, no hepatosplenomegaly, no masses. EXTREMITIES: 2+ pulses, warm, well-perfused, no edema. NEUROLOGICAL: Cranial nerves II through XII grossly intact. Normal speech, gait not observed. PSYCH: Normal mood, normal affect. SKIN: Warm, dry, normal turgor, no rashes or lesions noted. LABS Laboratory Results - last 24 hr 11/26/17 11/26/17 07:30 07:30 WBC 10.0 RBC 4.92 Hgb 15.2 Hct 45.9 MCV 93.3 MCH 30.9 MCHC 33.1 RDW 13.3 Plt Count 253 MPV 9.5 Sodium 136 Potassium 3.6 Chloride 98 Carbon Dioxide 25 Anion Gap 13 BUN 12 Creatinine 1.1 Random Glucose 75 D Calcium 8.8 HOSPITAL COURSE: Date of Admission:11/22/17 Date of Discharge: 11/26/17 afebrile, leukocytosis resolved Minutes to complete discharge: 35 Discharge Summary Reason For Visit: LEFT/LEG CELLULITIS Current Active Problems Acute lymphangitis of left lower extremity (Acute) Cellulitis and abscess of left leg (Acute) Cellulitis of left lower leg (Acute) DVT prophylaxis (Acute) HLD (hyperlipidemia) (Acute) HTN (hypertension) (Acute) Lymphangitis (Acute) Condition: Improved - Instructions Diet, Activity, Other Instructions: A prescription has been sent to your pharmacy for Keflex which is an antibiotic. Take this medication as directed and be sure to finish all the medication. You should follow up this week with Dr. Mcarthur. Call his office to make an appointment. His contact information is enclosed in this discharge packet. Return to the emergency department for any new or worsening symptoms. Referrals: Quynh Posada MD [Non Staff, Medical] - Cristhian Mcarthur MD [Staff Physician] - 11/29/17 Disposition: HOME - Home Medications Comprehensive Discharge Medication List: Ambulatory Orders Cephalexin [Keflex] 500 mg PO Q6H #28 capsule MDD 4 11/26/17 This patient is new to me today: No Emergency Visit: Yes ED Registration Date: 11/22/17 Care time: The patient presented to the Emergency Department on the above date and was hospitalized for further evaluation of their emergent condition. Critical Care patient: No - Discharge Referral Referred to [facility] No
[2017-11-27 16:28] LABS: URINE LEUK ESTERASE NEGATIVE (NEGATIVE)
== END 2017-11-26 13:52 | disposition home or self-care (01) | DRG 603 ==
LOC: FER 14:44 → FM/S 17:44
PROVIDERS: ADMIT Internal Medicine; ATTEND Nurse Practitioner Acute Care
DX: L03.116 Cellulitis of left lower limb (principal); E87.2 Acidosis; I10 Essential (primary) hypertension; E78.5 Hyperlipidemia, unspecified; D72.829 Elevated white blood cell count, unspecified
CPT/HCPCS: 36415; 71046-TC; 73701-TC-RT; 80048; 80053; 81003; 81015; 82550; 83605; 83735; 84484; 85025; 85027; 85610; 85730; 87040; 87081; 87086; 93005; 93971-TC; 99283-25; G0480